=== PATIENT | male | born 1970 | race Caucasian/White ===

== ENCOUNTER 2020-01-03 13:22 | Emergency (ER) | payer OTHER ==
[~2020-01-03] VITALS: Ht 172.7 cm; Wt 59.0 kg
[2020-01-03 13:33] VITALS: Ht 172.7 cm; Wt 59.0 kg
[2020-01-03 14:30] VITALS: BP 75/27
[2020-01-03 14:32] LABS: PLATELET COUNT 321 x10^3mcL (130-400)
[2020-01-03 14:35] LABS: RED CELL DISTRIBUTION WIDTH 22.8 % (11.5-14.5)
[2020-01-03 14:55] LABS: BILIRUBIN TOTAL 2.4 mg/dL (0.20-1.00); CALCIUM 7.5 mg/dL (8.5-10.1); CARBON DIOXIDE 12.1 mmol/L (21-32)
[2020-01-03 14:59] LABS: ALBUMIN 1.6 g/dL (3.4-5.0); CREATININE SERUM 6.7 mg/dL (0.7-1.3); POTASSIUM SERUM 6.9 mmol/L (3.5-5.1); TOTAL PROTEIN, SERUM 5.7 g/dL (6.4-8.2)
[2020-01-03 15:10] LABS: BAND NEUTROPHIL 2 % (0-10); BASOPHIL 0 % (0-2); SEGMENTED NEUTROPHILS 95 % (37-75)
[2020-01-03 15:11] LABS: rbc morphology (normal/abnorm) ABNORMAL (NORMAL)
[2020-01-03 15:20] LABS: microscopic required? YES
[2020-01-03 15:22] LABS: urine erythrocyte 4+ (NEGATIVE)
[2020-01-03 15:23] LABS: UA SPECIFIC GRAVITY 0.015 (1.005-1.035)
== END 2020-01-03 16:50 | disposition expired ==
LOC: ED 13:22
PROVIDERS: Emergency Medicine
DX: I46.9 Cardiac arrest, cause unspecified (principal); C18.9 Malignant neoplasm of colon, unspecified
CPT/HCPCS: J7030; Q0092